=== PATIENT | male | born 1935 | race Native Hawaiian/Other Pacific Islander ===

== ENCOUNTER 2016-10-20 13:43 | Outpatient (CLI) | payer OTHER ==
[~2016-10-20 13:43] MED LIST: FOLI1TAB26 PO; LEVO0.1T6 PO; NEXIUM40 M1 PO
== END 2016-10-20 13:46 | disposition short-term general hospital (02) ==
LOC: AMB 13:43
DX: S00.81XA Abrasion of other part of head, initial encounter (principal); S80.211A Abrasion, right knee, initial encounter; S00.31XA Abrasion of nose, initial encounter; S60.511A Abrasion of right hand, initial encounter; S00.83XA Contusion of other part of head, initial encounter; W10.8XXA Fall (on) (from) other stairs and steps, initial encounter; Y92.240 Courthouse as the place of occurrence of the external cause
CPT/HCPCS: A0425; A0429

== ENCOUNTER 2016-10-20 13:47 | Emergency (ER) | payer OTHER ==
[~2016-10-20] VITALS: Ht 175.3 cm; Wt 93.9 kg
[2016-10-20 14:43] LABS: PLATELET COUNT 262 K/uL (142-355)
[2016-10-20 15:19] LABS: POTASSIUM 3.7 mmol/L (3.6-5.2); SODIUM 140 mmol/L (136-145)
[2016-10-20 17:00] VITALS: BP 151/92; TEMP 97.7
== END 2016-10-20 17:00 | disposition home or self-care (01) ==
LOC: ED 13:47
PROVIDERS: Specialist
DX: S00.81XA Abrasion of other part of head, initial encounter (principal); S80.01XA Contusion of right knee, initial encounter; W18.39XA Other fall on same level, initial encounter; Y92.89 Other specified places as the place of occurrence of the external cause
CPT/HCPCS: 36415; 80048; 82550; 82553; 84484; 85027; 90715; 93005; 99283

== ENCOUNTER 2017-08-23 04:17 | Outpatient (CLI) | payer OTHER | END 2017-08-23 05:01 | disposition short-term general hospital (02) | LOC: AMB 04:17 | DX: K92.0 Hematemesis (principal); R10.84 Generalized abdominal pain | CPT/HCPCS: A0425; A0427 ==

== ENCOUNTER 2017-09-16 15:39 | Emergency (ER) | payer OTHER ==
[~2017-09-16] VITALS: Ht 175.3 cm; Wt 85.3 kg
[2017-09-16 17:23] LABS: PLATELET COUNT 326 K/uL (142-355)
[2017-09-16 17:28] LABS: POTASSIUM 4.4 mmol/L (3.6-5.2); SODIUM 136 mmol/L (136-145)
[2017-09-16 21:49] LABS: PARTIAL THROMBOPLASTIN TIME 28.9 SECONDS (24.5-33.6)
[2017-09-17 00:18] VITALS: BP 109/73; TEMP 98.9
== END 2017-09-17 00:18 | disposition short-term general hospital (02) ==
LOC: ED 15:39
PROVIDERS: Emergency Medicine
DX: R07.89 Other chest pain (principal); K44.9 Diaphragmatic hernia without obstruction or gangrene; R06.02 Shortness of breath; R62.7 Adult failure to thrive; R53.1 Weakness
CPT/HCPCS: 36415; 80053; 81000; 82550; 82553; 84484; 85027; 85610; 85730; 93005; 96360; 96361; 96372; 99285; J1650; J2270; J2405

== ENCOUNTER 2017-10-13 01:45 | Outpatient (CLI) | payer OTHER ==
[2017-10-13] MEDS ORDERED: TAMS0.4C PO (02:20)
[2017-10-13] MEDS ORDERED: CLOPIDOGREL75 MG PO (02:20)
[2017-10-13] MEDS ORDERED: LIPITOR40 MG PO (02:20)
[2017-10-13] MEDS ORDERED: PRINIVIL5 MG PO (02:20)
== END 2017-10-13 01:57 | disposition short-term general hospital (02) ==
LOC: AMB 01:45
DX: R07.89 Other chest pain (principal); R06.02 Shortness of breath
CPT/HCPCS: A0425; A0427

== ENCOUNTER 2017-10-13 02:01 | Emergency (ER) | payer OTHER ==
[~2017-10-13] VITALS: Ht 175.3 cm; Wt 82.6 kg
[2017-10-13 02:17] LABS: PLATELET COUNT 353 K/uL (142-355)
[2017-10-13] MEDS ORDERED: CLOPIDOGREL75 MG PO (02:20)
[2017-10-13] MEDS ORDERED: LIPITOR40 MG PO (02:20)
[2017-10-13] MEDS ORDERED: TAMS0.4C PO (02:20)
[2017-10-13] MEDS ORDERED: PRINIVIL5 MG PO (02:20)
[2017-10-13 02:36] LABS: POTASSIUM 4.6 mmol/L (3.6-5.2); SODIUM 138 mmol/L (136-145)
[2017-10-13 03:22] VITALS: BP 116/67; TEMP 96.3
== END 2017-10-13 03:24 | disposition home or self-care (01) ==
LOC: ED 02:01
DX: K44.9 Diaphragmatic hernia without obstruction or gangrene (principal); K21.9 Gastro-esophageal reflux disease without esophagitis; I44.4 Left anterior fascicular block
CPT/HCPCS: 80053; 82550; 84484; 85027; 93005; 96374; 99284; J2270

== ENCOUNTER 2019-05-31 19:39 | Outpatient (CLI) | payer OTHER ==
[~2019-05-31 19:39] MED LIST changes: +CLOPIDOGREL75 MG PO; +LIPITOR40 MG PO; +PRINIVIL5 MG PO; +TAMS0.4C PO
== END 2019-05-31 19:52 | disposition short-term general hospital (02) ==
LOC: AMB 19:39
DX: S01.81XA Laceration without foreign body of other part of head, initial encounter (principal); W01.0XXA Fall on same level from slipping, tripping and stumbling without subsequent striking against object, initial encounter; Y93.89 Activity, other specified; Y92.010 Kitchen of single-family (private) house as the place of occurrence of the external cause
CPT/HCPCS: A0425; A0427

== ENCOUNTER 2019-05-31 20:00 | Emergency (ER) | payer OTHER ==
[~2019-05-31] VITALS: Ht 175.3 cm; Wt 73.9 kg
[2019-05-31 21:50] VITALS: BP 154/63; TEMP 97.7
== END 2019-05-31 21:50 | disposition home or self-care (01) ==
LOC: ED 20:00
PROC: 0HQ1XZZ Repair Face Skin, External Approach (ICD-10-PCS; principal; 2019-05-31)
DX: S01.81XA Laceration without foreign body of other part of head, initial encounter (principal); S09.8XXA Other specified injuries of head, initial encounter; W18.39XA Other fall on same level, initial encounter; Y92.098 Other place in other non-institutional residence as the place of occurrence of the external cause
CPT/HCPCS: 90471; 90715; 99283

== ENCOUNTER 2020-07-12 23:40 | Emergency (ER) | payer OTHER ==
[~2020-07-12] VITALS: Ht 175.3 cm; Wt 74.8 kg
[2020-07-13 02:12] VITALS: BP 159/62
== END 2020-07-13 02:13 | disposition home or self-care (01) ==
LOC: ED 23:40
PROC: 0HQEXZZ Repair Left Lower Arm Skin, External Approach (ICD-10-PCS; principal; 2020-07-12)
PROC: 0JDH3ZZ Extraction of Left Lower Arm Subcutaneous Tissue and Fascia, Percutaneous Approach (ICD-10-PCS; 2020-07-12)
DX: S51.812A Laceration without foreign body of left forearm, initial encounter (principal); S50.12XA Contusion of left forearm, initial encounter; W18.39XA Other fall on same level, initial encounter; Y92.89 Other specified places as the place of occurrence of the external cause
CPT/HCPCS: 90471; 90715; 99283

== ENCOUNTER 2020-07-22 15:53 | Emergency (ER) | payer OTHER ==
[~2020-07-22] VITALS: Ht 175.3 cm; Wt 74.8 kg
[2020-07-22 16:06] VITALS: BP 134/74; TEMP 98.9
== END 2020-07-22 16:57 | disposition home or self-care (01) ==
LOC: ED 15:53
DX: Z48.02 Encounter for removal of sutures (principal)

== ENCOUNTER 2020-10-10 09:28 | Outpatient (CLI) | payer OTHER | END 2020-10-10 21:18 | disposition home or self-care (01) | LOC: LAB 09:28 → EDBD 09:28 → LAB 21:18 | PROVIDERS: ATTEND Internal Medicine | DX: Z20.828 Contact with and (suspected) exposure to other viral communicable diseases (principal) | CPT/HCPCS: 87635; G2023; U0003 ==

== ENCOUNTER 2020-10-24 20:29 | Emergency (ER) | payer OTHER ==
[~2020-10-24] VITALS: Ht 175.3 cm; Wt 95.3 kg
[2020-10-24 22:06] LABS: PLATELET COUNT 124 K/uL (142-355)
[2020-10-24 22:15] LABS: POTASSIUM 4.3 mmol/L (3.6-5.2)
[2020-10-25 00:04] VITALS: BP 123/61; TEMP 99.4
== END 2020-10-25 00:04 | disposition home or self-care (01) ==
LOC: ED 20:29 → EDBD 20:29 → ED 10-25 00:04
PROVIDERS: Emergency Medicine Emergency Medical Services
DX: U07.1 COVID-19 (principal)
CPT/HCPCS: 36415; 80053; 83605; 85027; 87040; 87077; 87185; 87186; 87205; 87635; 96360; 96375; 99284; J1100; U0003

== ENCOUNTER 2020-10-26 10:58 | Emergency (ER) | payer OTHER ==
[~2020-10-26] VITALS: Ht 175.3 cm; Wt 95.3 kg
[2020-10-26 12:07] LABS: PLATELET COUNT 169 K/uL (142-355)
[2020-10-26 12:14] LABS: POTASSIUM 4.5 mmol/L (3.6-5.2)
[2020-10-26 12:55] VITALS: BP 120/77; TEMP 98.6
== END 2020-10-26 13:00 | disposition home or self-care (01) ==
LOC: ED 10:58 → EDBD 10:58 → ED 13:00
PROVIDERS: Family Medicine
DX: J44.1 Chronic obstructive pulmonary disease with (acute) exacerbation (principal); U07.1 COVID-19; Z79.2 Long term (current) use of antibiotics
CPT/HCPCS: 36415; 36600; 80053; 82805; 83605; 85027; 87040; 87077; 87185; 87186; 87205; 93005; 96374; 99284; J2930

== ENCOUNTER 2021-03-30 11:44 | Emergency (ER) | payer OTHER ==
[~2021-03-30] VITALS: Ht 175.3 cm; Wt 74.8 kg
[2021-03-30 11:50] VITALS: TEMP 97.4
[2021-03-30 12:20] LABS: PLATELET COUNT 195 K/uL (142-355)
[2021-03-30 15:57] VITALS: BP 133/61
== END 2021-03-30 16:05 | disposition home or self-care (01) ==
LOC: ED 11:44
PROVIDERS: Hospitalist
DX: K44.9 Diaphragmatic hernia without obstruction or gangrene (principal); N20.0 Calculus of kidney; N41.8 Other inflammatory diseases of prostate; Z20.822 Contact with and (suspected) exposure to COVID-19
CPT/HCPCS: 36415; 80053; 82150; 83690; 84484; 85027; 87635; 93005; 96360; 96365; 96375; 96376; 99284; J0696; J2405; Q9963; U0003

== ENCOUNTER 2021-04-03 01:18 | Inpatient (IN) | payer OTHER ==
[~2021-04-03] VITALS: Ht 175.3 cm; Wt 81.3 kg
[2021-04-03] VITALS (13 sets, daily range): BP systolic 86–126; BP diastolic 51–74; TEMP 97.6–98.3; Ht 175.3 cm; Wt 81.3 kg
[2021-04-03 01:37] LABS: PLATELET COUNT 200 K/uL (142-355)
[2021-04-03 01:47] LABS: POTASSIUM 4.6 mmol/L (3.6-5.2)
[2021-04-03 01:57] LABS: PARTIAL THROMBOPLASTIN TIME 20.7 SECONDS (24.5-33.6)
[2021-04-03] MEDS ORDERED: PANTOPRAZOLE 40MG TA PO (08:07)
[2021-04-03] MEDS ORDERED: MONTELUKAST SOD10 MG PO (08:07)
[2021-04-03] MEDS ORDERED: APIX1TAB PO (08:08)
[2021-04-03] MEDS ORDERED: FEXOFENADINE H180 MG PO (08:08)
[2021-04-03] MEDS ORDERED: HEMATINIC PL PO (08:10)
[2021-04-03] MEDS ORDERED: BRIMONIDINE0.2 % (08:11)
[2021-04-04] VITALS: BP 108/57; TEMP 97.8
[2021-04-04 04:00] VITALS: BP 113/52; TEMP 97.8
[2021-04-04 07:05] LABS: PLATELET COUNT 133 K/uL (142-355)
[2021-04-04 07:14] LABS: POTASSIUM 4.8 mmol/L (3.6-5.2)
[2021-04-04 12:00] VITALS: BP 105/44; TEMP 98.1
[2021-04-04 16:00] VITALS: BP 112/62; TEMP 98
[2021-04-04 20:13] VITALS: BP 111/60; TEMP 98.2
[2021-04-05] VITALS (14 sets, daily range): BP systolic 99–125; BP diastolic 37–65; TEMP 97.7–99.3
[2021-04-05 05:40] LABS: PLATELET COUNT 128 K/uL (142-355)
[2021-04-05 05:45] LABS: POTASSIUM 4.5 mmol/L (3.6-5.2)
[2021-04-06] VITALS (7 sets, daily range): BP systolic 97–125; BP diastolic 51–61; TEMP 97.8–98.4
[2021-04-06 05:12] LABS: PLATELET COUNT 110 K/uL (142-355)
[2021-04-06 05:26] LABS: POTASSIUM 4.2 mmol/L (3.6-5.2)
[2021-04-07] VITALS: BP 117/50; TEMP 97.9
[2021-04-07 04:00] VITALS: BP 129/71; TEMP 97.9
[2021-04-07 05:41] LABS: PLATELET COUNT 142 K/uL (142-355)
[2021-04-07 05:54] LABS: POTASSIUM 3.9 mmol/L (3.6-5.2)
[2021-04-07 08:00] VITALS: BP 134/71; TEMP 97.7
[2021-04-07 12:00] VITALS: BP 130/63; TEMP 98.3
[2021-04-07 16:00] VITALS: BP 131/59; TEMP 97.3
[2021-04-07 20:00] VITALS: BP 113/63; TEMP 98.5
[2021-04-08] VITALS: BP 134/66; TEMP 97.8
[2021-04-08 04:00] VITALS: BP 129/66; TEMP 97.9
[2021-04-08 08:00] VITALS: BP 130/66; TEMP 97.5
[2021-04-08 12:00] VITALS: BP 132/72; TEMP 98
[2021-04-08 16:00] VITALS: BP 111/54; TEMP 98.2
[2021-04-08 20:00] VITALS: BP 114/66; TEMP 98
[2021-04-09] VITALS: BP 113/58; TEMP 96.3
[2021-04-09 04:00] VITALS: BP 110/65; TEMP 97.2
[2021-04-09 08:00] VITALS: BP 108/62; TEMP 97.6
[2021-04-09 12:00] VITALS: BP 125/57; TEMP 98.1
[2021-04-09 16:00] VITALS: BP 107/62; TEMP 98.1
[2021-04-09 20:00] VITALS: BP 124/62; TEMP 98.7
[2021-04-10] VITALS: BP 103/50; TEMP 97.6
[2021-04-10 04:00] VITALS: BP 109/48; TEMP 97.6
[2021-04-10 07:39] LABS: PLATELET COUNT 248 K/uL (142-355)
[2021-04-10 08:00] VITALS: BP 116/67; TEMP 97.8
[2021-04-10 08:06] LABS: POTASSIUM 4.1 mmol/L (3.6-5.2)
== END 2021-04-10 11:12 | disposition swing bed (61) | DRG 872 ==
LOC: ED 01:18 → MED/SURG 04:30
PROVIDERS: Internal Medicine Endocrinology, Diabetes & Metabolism; ADMIT Hospitalist; ATTEND Internal Medicine
PROC: 30233N1 Transfusion of Nonautologous Red Blood Cells into Peripheral Vein, Percutaneous Approach (ICD-10-PCS; principal; 2021-04-06)
DX: R78.81 Bacteremia (principal); R65.10 Systemic inflammatory response syndrome (SIRS) of non-infectious origin without acute organ dysfunction; I95.89 Other hypotension; I25.10 Atherosclerotic heart disease of native coronary artery without angina pectoris; I73.89 Other specified peripheral vascular diseases; I25.2 Old myocardial infarction; Z95.1 Presence of aortocoronary bypass graft; E03.8 Other specified hypothyroidism; N40.0 Benign prostatic hyperplasia without lower urinary tract symptoms; D64.89 Other specified anemias; K21.9 Gastro-esophageal reflux disease without esophagitis; M62.81 Muscle weakness (generalized); R26.81 Unsteadiness on feet; B99.8 Other infectious disease; Z91.81 History of falling
CPT/HCPCS: 36415; 36416; 80048; 80053; 80202; 81000; 82607; 82728; 82746; 83540; 83605; 83690; 84484; 85014; 85018; 85027; 85610; 85730; 86850; 86900; 86901; 86922; 87040; 87077; 87185; 87186; 87205; 87635; 93005; 94760; 96360; 96361; 96365; 96366; 99284; J1956; J1650; J2270; J2405; J3370; J3490; P9016; U0003

== ENCOUNTER 2021-04-10 11:12 | Inpatient (IN) | payer OTHER ==
[~2021-04-10] VITALS: Ht 175.3 cm; Wt 79.8 kg
[~2021-04-10 11:12] MED LIST changes: +APIX1TAB PO; +BRIMONIDINE0.2 %; +FEXOFENADINE H180 MG PO; +HEMATINIC PL PO; +MONTELUKAST SOD10 MG PO; +PANTOPRAZOLE 40MG TA PO
[2021-04-10 14:34] VITALS: BP 116/67; TEMP 97.8; Ht 175.3 cm; Wt 79.8 kg
--- NOTE | 2021-04-10 14:57 | NUR ---
SWINGBED WEEKLY MEETING TOOK PLACE AT PTS BEDSIDE WITH DAUGHTER AT BEDSIDE. PT AWAKE AND ALERT AND GAVE VERBAL FEEDBACK. NO VOICED COMPLAINTS FROM PT OR DAUGHTER.
--- NOTE | 2021-04-10 17:18 | NUR ---
PT IN BED WITH EYES CLOSED. ASSIST PT TO VOID IN URINAL. OFFERED PT A SNACK, HE REQUESTED APPLE JUICE AND CASEY CRACKERS. PT ALERT AND ATTENATIVE DURING DAY, WATCHES TV. DENIES ANY PAIN/DISCOMFORT. NAD NOTED. PT HAS NOT HAD A BM TODAY.
--- NOTE | 2021-04-10 18:50 | NUR ---
PT WAS CLEANED/CHANGED AFTER HE HAD VOIDED IN DEPENDS DUE TO INCREASE IN PO FLUID INTAKE. PT C/O PAIN/DISCOMFORT IN POSTERIOR NECK R/T FALL HOME PRIOR TO ADMISSION. ADMINISTERED TYLENOL 650MG PO ORDERED. NAD NOTED. DAUGHTER AT BEDSIDE.
--- NOTE | 2021-04-10 18:58 | NUR ---
During interview, resident reported that he enjoys watching westerns on television, watching "[place]" and watching Dr. Jaya Johnson give a sermon. He also verbalized that he likes listening to [employer] music, reading the newspaper, talking on his cell phone to his lady friend and his nephew.
--- NOTE | 2021-04-10 19:06 | NUR ---
Resident's daughter Kandi Bazzi reported that resident will NOT eat chicken, macaroni and cheese, corn or Russian peas. Resident will eat sausage, bullard and BEEF hot dogs. Nursing reported that he enjoys drinking apple juice and cranberry juice.
--- NOTE | 2021-04-10 19:08 | NUR ---
Resident plans to return home to live with his daughter Kandi Bazzi and her . He has used [facility] in the past and desires to use their services again upon discharge from [facility].
[2021-04-10 20:10] VITALS: BP 111/51; TEMP 97.7
--- NOTE | 2021-04-10 23:14 | NUR ---
Pt resting in bed in high rayo's position alert watching tv. Denies c/o at this time. Apple juice given per request. Pt cont Levaquin 500mg po for UTI with no adverse reaction noted. Fluids offered and encouraged. Pt utilizes urinal and has occasional incontinent episodes. Pt given prn MOM for constipation due to last BM 04/04/21. Pt also given prn Ativan per request for "same med you gave me last night that helped me rest." No s/s of distress at this time. Call light in easy reach.
--- NOTE | 2021-04-11 03:11 | NUR ---
Pt alert at 0100 on phone talking to daughter confused to day/night hours. Sees clock on wall but confuses a.m. & p.m. hours. Pt asking about "procedure tomorrow." When questioned it was noted he was confused to the term of "swing bed". Educated pt on what swing bed meant and that it was not a procedure that would be performed on him other than daily activity therapy.
--- NOTE | 2021-04-11 06:04 | NUR ---
Pt has received scheduled dose of Colace 200mg along prn MOM 30ml and has still not had a BM. Fluids encouraged. Water and apple juice at bedside.
[2021-04-11 08:00] VITALS: BP 137/51; TEMP 97.4
--- NOTE | 2021-04-11 08:00 | NUR ---
PT CALLED FOR ASSISTANCE FOR HELP WITH URINAL. UPON ENTERING ROOM PT STATES THAT HE NEEDS TO USE THE JUG. PT ASSITED WITH URINAL. PTS LINEN CHANGED, SMALL AMT OF URINE NOTED TO LINEN. PT ABLE TO REACH FOR SIDERAILS WHEN TURNING TO BE CHANGED. PT REMOVED DENTURES, DENTURES CLEANED BY NURSE, PT ABLE TO BRUSH GUMS, DENTURES GIVEN BACK TO PT TO REINSERT. PT STATES THAT HE NEEDS NEW DENTURES.
--- NOTE | 2021-04-11 09:15 | NUR ---
PROVIDED PATIENT WITH AM MEDICATIONS. PT TOOK ALL MEDICATIONS WHOLE WITHOUT DIFFICULTY. PATIENT SITTING UP IN [place] CHAIR, LINENS CHANGED BY SALES ASSISTANT ENTERTAINMENT AND MEDIA. PATIENT DENIES ANY PAIN, NEEDS OR C/O AT THIS TIME. PATIENT INSTRUCTED TO CALL FOR ANY ASSISTANCE OR NEEDS AND PT EDUCATED ON USE OF CALL LIGHT. PATIENT V/O UNDERSTANDING. NAD NOTED WITH PATIENT AT THIS TIME. AM ASSESSMENT COMPLETED.
--- NOTE | 2021-04-11 10:05 | NUR ---
PATIENT TRANSFERRED TO [facility] [place]ER AND STAFF AT SIDE CUING AND OFFERING SUPPORT TO PATIENT. STAFF PROVIDED NO WEIGHT BEARING SUPPORT TO PATIENT. PATIENT TOLERATED WELL.
--- NOTE | 2021-04-11 10:30 | NUR ---
PATIENT UNABLE TO HAVE A BOWEL MOVEMENT AT THIS TIME. SUPERVISED PATIENT WHILE TRANSFERRING TO BED, NO WEIGHT BEARING SUPPORT PROVIDED TO PATIENT ONLY SUPERVISION AND CUING. PATIENT'S SON AT BEDSIDE.
--- NOTE | 2021-04-11 11:40 | NUR ---
PATIENT'S SON REMAINS AT BEDSIDE VISITING WITH PATIENT. PATIENT DENIES ABILITY TO HAVE BOWEL MOVEMENT AT THIS TIME. PATIENT C/O OF PAIN TO NECK. DARLENE, PT, ADVISED THEY TOSSED THE BALL FOR APPROXIMATELY 15 MINUTES PROVIDING ADDITIONAL EXERCISE FOR THE NECK MUSCLES. INFORMED THE PATIENT AND PATIENT'S SON I WOULD CONSULT WITH THE PHYSICIAN ABOUT PATIENT'S PAIN AND ADDITIONAL MEDICATION TO MOVE PATIENT'S BOWELS, BOTH V/O UNDERSTANDING. CALL LIGHT WITHIN REACH, PT AND SON ENCOURAGED TO CALL FOR ANY ASSISTANCE OR NEEDS, BOTH V/O UNDERSTANDING.
--- NOTE | 2021-04-11 13:20 | NUR ---
RECEIVED NEW ORDERS FOR ENEMA X1 NOW AND VOLTAREN GEL TO BE APPLIED TO NECK NOTED AND CARRIED OUT. ADMINISTERED ENEMA WITH MODERATE AMOUNT OF HARDENED FECES REMOVED, PT V/O HIS "STOMACH ALREADY FEELS BETTER". ADMINISTERED MILK OF MAG AND VOLTAREN GEL APPLIED TO NECK BY HAT BAND ATTACHER. PATIENT V/O HIS APPRECIATION FOR SAME.
--- NOTE | 2021-04-11 14:54 | NUR ---
04/10/21-PRACTICAL MATTER STATEMENT MR WILLSON IS A 85 YR OLD MALE THAT WAS ADMITTED FROM ACUTE CARE TO OUR SWING BED GROUP HOME PROGRAM FOR THERAPY. PT HAD AN INPT STAY FROM 04/03/21-04/10/21 FOR SEPSIS/SIRS. MR WILLSON LIVES WITH HIS DAUGHTER & SON IN LAW WHO BOTH WORKS VICE PRESIDENT & GENERAL MANAGER [employer] [place] [employer]. MR WILLSON NO REQUIRES 24 HR GROUP HOME CAR ON AN INPT BASIS ALONG [facility] INPT PT, OT, 5 DAYS A WEEK WHICH IS A PRACTICAL MATTER. HE CONTINUES TO STRUGGLE WITH SEVERE WEAKNESS, REQUIRING 2 PERSON ASSIST TO HELP WITH TRANSFERS, TOILETING, WALKING, BED MOBILITY & OTHER ADLS, THEREFORE NO LONGER ABLE TO CARE FOR HIMSELF, & MEET HIS DAILY NEEDS. HE WILL NEED ASSISTANCE WITH ALL ADL'S. HIS FAMILY IS UNABLE TO PROVIDE THIS CARE AT THIS TIME BECAUSE OF THEIR JOBS. [facility] STAFF WITH CONTINUE TO OBSERVE AND ASSIST MR WILLSON WITH ANY MEDICALLY RELATED NEEDS AND DISCHARGE PLANNING NEEDS THANH ESPINOSA CM 04/11/2021
--- NOTE | 2021-04-11 15:25 | NUR ---
PATIENT VISITING WITH FAMILY MEMBERS AT BEDSIDE. PATIENT DENIES ANY PAIN, NEEDS OR C/O AT THIS TIME. PATIENT ENCOURAGED TO CALL FOR ANY ASSISTANCE OR NEEDS, CALL LIGHT WITHIN REACH.
--- NOTE | 2021-04-11 16:35 | NUR ---
PATIENT'S DAUGHTER AT BEDSIDE. PATIENT DENIES ANY PAIN, NEEDS OR C/O AT THIS TIME. PATIENT V/O HIS NECK PAIN IS 2/10 NUMERIC PAIN SCALE AT THIS TIME. PATIENT DENIES BOWEL MOVEMENT AT THIS TIME. NAD NOTED WITH PATIENT AT THIS TIME.
[2021-04-11 20:00] VITALS: BP 117/69; TEMP 97.9
--- NOTE | 2021-04-11 21:00 | NUR ---
VOLTAREN GEL AND NORCO 5/325 MG GIVEN AT THIS TIME FOR NECK PAIN OF 8/10 VOICED BY PT. PT SITTING UP IN BED WATCHING TV IN A HIGH-FOWLERS POSITION WITH BED IN LOWEST POSITION WITH CALL LIGHT WITHIN REACH. PM MEDS GIVEN AT THIS TIME. PT. TOLERATED WELL. WILL CONTINUE TO MONITOR PT FOR MEDICATION EFFECTIVENESS.
[2021-04-12 08:00] VITALS: BP 129/64; TEMP 97.4
--- NOTE | 2021-04-12 09:28 | NUR ---
PER PHYSICAL THERAPY, THEY LEFT PATIENT UP IN RECLINER. HARP ACTION ASSEMBLER TO ROOM TO ASSESS PT.
--- NOTE | 2021-04-12 14:48 | NUR ---
ASSISTED PT ONTO BSC FOR BM USING WALKER AND MIN ASSIST. PT GIVEN CALL LIGHT AND INSTRUCTIONS TO CALL FOR ASSIST BACK TO BED.
--- NOTE | 2021-04-12 15:00 | NUR ---
Sridhar YE RNCN IN TO ASSIST PT BACK TO BED FROM BSC. HEMOCCULT STOOL COLLECTED AND TAKEN TO LAB. PT NOTED TO HAVE EVACUATED A LARGE AMOUNT OF FORMED STOOL.
--- NOTE | 2021-04-12 16:27 | NUR ---
DR. WADSWORTH NOTIFIED THAT SMALL AMT BLOOD WAS SEEN IN STOOL AND THAT PATIENT STILL TAKING ELIQUIS. TORBV FOR CBC NOW.
--- NOTE | 2021-04-12 18:30 | NUR ---
SANDOR Oviedo IN THE LAB, PT HAS TO BE RESTUCK FOR CBC.
--- NOTE | 2021-04-12 18:32 | NUR ---
DR. WADSWORTH NOTIFIED OF + HEMOCCULT RESULTS AND THAT CBC HAS TO BE REDRAWN. NO NEW ORDERS AT THIS TIME.
--- NOTE | 2021-04-12 18:33 | NUR ---
ASSISTED PT WITH URINAL, 100CC YELLOW URINE EMPTIED FROM URINAL. DAUGHTER AT BEDSIDE. NAD NOTED AT THIS TIME.
[2021-04-12 19:01] LABS: PLATELET COUNT 308 K/uL (142-355)
--- NOTE | 2021-04-12 19:07 | NUR ---
DR. WADSWORTH AWARE OF HGB 10.9- NO NEW ORDERS AT THIS TIME.
[2021-04-12 20:00] VITALS: BP 98/45; TEMP 98
--- NOTE | 2021-04-12 22:45 | NUR ---
PT. ASSISTED UP THE BEDSIDE COMMODE AT THIS TIME. PT HAS A LARGE BLACK FORMED BOWEL MOVEMENT AT THIS TIME.
--- NOTE | 2021-04-13 07:40 | NUR ---
PATIENT IN HIGH FOWLERS POSITION WATCHING TV. PATIENT ADVISED HE SLEPT WELL LAST NIGHT AND DENIES ANY PAIN, NEEDS OR C/O AT THIS TIME. NAD NOTED WITH PATIENT AT THIS TIME. CALL LIGHT WITHIN REACH AND BEDSIDE TABLE WITH PERSONAL BELONGINGS WITHIN PATIENT'S REACH. PROVIDED FRESH WATER AND ICE IN PATIENT'S WATER MUG
[2021-04-13 08:00] VITALS: BP 122/58; TEMP 97.4
--- NOTE | 2021-04-13 08:05 | NUR ---
PATIENT CALLED STAFF TO BEDSIDE TO PLACE BLANKET OVER HIS FEET.
--- NOTE | 2021-04-13 10:35 | NUR ---
SUPERVISED AND CUED PATIENT WITH TRANSFERRING FROM BED TO [place] CHAIR WITH USE OF WALKER. GAIT IS STEADY AND PCT JESSICA INSTRUCTED PATIENT TO "SLOW DOWN". NAD NOTED WITH PATIENT AT THIS TIME. CALL LIGHT PLACED IN CHAIR WITH PATIENT AND BEDSIDE TABLE WITH PERSONAL BELONGINGS PLACED WITHIN REACH. PATIENT INSTRUCTED TO CALL FOR ANY ASSISTANCE OR NEEDS, PT V/O UNDERSTANDING.
--- NOTE | 2021-04-13 14:30 | NUR ---
PATIENT'S DAUGHTER AT BEDSIDE. PATIENT REQUEST STAFF TO ASSIST HIM TO BSC. PATIENT HAD A LARGE BOWEL MOVEMENT. STAFF PROVIDED MINIMAL ASSIST WITH ONLY SUPERVISION AND CUING. PATIENT'S DAUGHTER REPEATEDLY V/O HER APPRECIATION FOR THE CARE STAFF HAS PROVIDED TO HER FATHER AND STATED "HE LOOKS SO MUCH BETTER". STAFF SUPERVISED AND CUED PATIENT IN THE TRANSFER FROM BSC TO BED. PATIENT TOLERATED WELL. CALL LIGHT WITHIN REACH AND BEDSIDE TABLE PLACED NEXT TO PATIENT AND PERSONAL ITEMS ALL WITHIN REACH. NO S/SX OF DISTRESS NOTED WITH PATIENT.
--- NOTE | 2021-04-13 18:31 | NUR ---
PATIENT'S BRIEF AND CHUX CHANGED BY NURSE.
[2021-04-13 20:00] VITALS: BP 156/46; TEMP 97.47
--- NOTE | 2021-04-13 22:36 | NUR ---
Pt resting in bed in low rayo's position with eye's closed. PRN pain med given earlier with no further c/o at this time. No s/s of distress noted. Call light in easy reach.
--- NOTE | 2021-04-14 02:16 | NUR ---
Pt resting in bed on left side with eyes closed. No c/o voiced. No s/s of distress. Call light in easy reach..
--- NOTE | 2021-04-14 04:07 | NUR ---
Pt resting in bed. Pt has called x2 in the past three hours for assistance with urinal. Also turned and repositioned x2 person assist. Denies c/o pain at this time. No s/s of distress.
--- NOTE | 2021-04-14 05:38 | NUR ---
Assisted pt with urinal and appeared to have blood in urine. Urine light red in color. Pt denies pain at this time. Requesting apple juice. Same given.
--- NOTE | 2021-04-14 07:49 | NUR ---
PT IN BED IN LOW FOWLERS POSITION. ASSISTED PT TO VOID IN URINAL. PT ALERT AND AWAKE. DENIES ANY PAIN OR DISCOMFORT. NAD NOTED. PT STATED "I SLEPT WELL LAST NIGHT BUT I HAD TO KEEP USING THE URINAL" NO HEMATURIA NOTED TO URINE,URINE CLEAR AND STRAW YELLOW.
[2021-04-14 08:00] VITALS: BP 99/56; TEMP 97.9
--- NOTE | 2021-04-14 14:27 | NUR ---
PT UP IN CHAIR THIS MORNING WITH ASSISTANCE FROM PT. ASSISTED PT BACK IN BED USING WALKER. PT COMPLIANT WITH THERAPY. PT ONLY ONE PERSON ASSIST GOING TO BEDSIDE COMMODE AND TO CHAIR. DENIES ANY PAIN OR DISCOMFORT. NAD NOTED.
[2021-04-14 19:53] VITALS: BP 105/53; TEMP 97.6
--- NOTE | 2021-04-14 20:05 | NUR ---
PM MEDS GIVEN AT THIS TIME. PT. TOLERATED WELL. NO S/S OF ACUTE DISTRESS NOTED AT THIS TIME. PT DID NOT COMPLAIN OF PAIN IN NECK REGION AT THIS TIME. PT EXPRESSED PT NEEDED TO URINATE. SUBSTANCE ABUSE SPECIALIST GAVE PT. URINAL AND PT SELF-ASSISTED HIMSELF. PT. PUT OUT 100 ML OF TEA COLORED URINE. PT SITTING UP IN A HIGH-FOWLERS POSITION WITH SIDE RAILS UP TIMES TWO WITH BED IN LOWEST POSITION WITH CALL LIGHT WITHIN REACH. WILL CONTINUE TO MONITOR FOR ANY ACUTE CHANGES.
--- NOTE | 2021-04-15 03:29 | NUR ---
BLOW MOLDING MACHINE TENDER IN PT'S ROOM TO PULL PT UP IN THE BED. BLOW MOLDING MACHINE TENDER WITNESSED PT. PULL HIMSELF UP IN THE BED AFTER BLOW MOLDING MACHINE TENDER ADJUSTED THE BED TO ACCOMODATE PT SO PT COULD TRY TO DO IT HIMSELF. PT. READJUSTED TO A LOW-FOWLERS POSITION. PT. IS USING URINAL INDEPENDENTLY AND JUST PUT OUT 275 ML. NO S/S OF ACUTE DISTRESS NOTED OR EXPRESSED BY PT.
[2021-04-15 08:00] VITALS: BP 128/70; TEMP 97.6
--- NOTE | 2021-04-15 08:31 | NUR ---
PT UP IN HF POSITION WITH BREAKFAST TRAY IN FRONT OF HIM. MORNING MEDS GIVEN AT THIS TIME. NAD NOTED. PT HAS NO COMPLAINTS OR REQUESTS AT THIS TIME. BED LOW AND LOCKED. SIDE RAILS UP X2. CALL LIGHT WITHIN REACH.
--- NOTE | 2021-04-15 10:30 | NUR ---
PT C/O RIGHT SIDED NECK PAIN. RATES PAIN A 5 ON 0-10 PAIN SCALE. PRN PAIN MEDS GIVEN, SEE MAR.
--- NOTE | 2021-04-15 10:46 | NUR ---
PT AMBULATING IN HALLWAY WITH ASSISTANCE OF PHYSICAL THERAPY
--- NOTE | 2021-04-15 17:15 | NUR ---
PT C/O NECK PAIN 6 ON 0-10 PAIN SCALE. PRN PAIN MEDS GIVEN, SEE MAR. PT TOLERATED WELL. NAD NOTED. BED LOW AND LOCKED. SIDE RAILS UP X2. CALL LIGHT WITHIN REACH.
--- NOTE | 2021-04-15 19:34 | NUR ---
Pt alert sitting in high fowlers position in bed watching tv with no c/o at this time. States "I'm good right now." Fluids at bedside. Received bath earlier today per tech. No s/s of distress at this time. Call light in easy reach.
[2021-04-15 20:01] VITALS: BP 115/56; TEMP 98
--- NOTE | 2021-04-16 05:45 | NUR ---
Pt resting in bed with eyes closed. Easily aroused. Denies c/o pain or discomfort. Apple juice given per request. HOB elevated. No s/s of distress. Call light in easy reach.
[2021-04-16 07:56] VITALS: BP 104/44; TEMP 98.2
--- NOTE | 2021-04-16 09:00 | NUR ---
PATIENT RESTING IN BED. NAD NOTED. CALL LIGHT WITHIN REACH. MORNING MEDS GIVEN. PATIENT TOOK WITHOUT DIFFICULTY. BREAKFAST TRAY GIVEN TO PATIENT.
--- NOTE | 2021-04-16 11:00 | NUR ---
PATIENT CALLED FOR URINAL. URINAL PROVIDED TO PATIENT. 200ML OF YELLOW URINE VOIDED.
--- NOTE | 2021-04-16 13:36 | NUR ---
DAUGHTER AT BEDSIDE.
[2021-04-16 20:00] VITALS: BP 110/45; TEMP 97.6
[2021-04-17 08:00] VITALS: BP 114/50; TEMP 97.6
[2021-04-17 20:00] VITALS: BP 123/65; TEMP 97.7
--- NOTE | 2021-04-17 21:15 | NUR ---
PM MEDS GIVEN AT THIS TIME. PT. TOLERATED WELL. NO S/S OF ACUTE DISTRESS NOTED. PT. USED URINAL WHILE PRODUCTION ARTIST IN ROOM. CALL LIGHT WITHIN REACH.
--- NOTE | 2021-04-18 05:14 | NUR ---
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, slow bleed, S/P Sepsis, kidney stone, CABG x 1, Hypotension, partial SBO, Ballard's esophagus with Dyspegia, BPH, Diverticulitis, Adult FTT, abrasion to the face, CP and R/O [place], GERD, smoked for 40 years, CAD/[place], Hyperlipidemia, PUD, skin cancer, Anemia and RD reviewed whole chart and labs reveal RBC, Hgb and Hct depressed and RDW elevated, 63" or 5'3" and IBW = 124 +/-10% (112 to 136 lbs.) and kcal needs x 25 = 1400, x 30 = 1700, x 35 = 2000, x 40 = 2300 kcal/day, protein needs x .8 to 1.5 = 45 to 85 grams per day and fluids for IBW x 25 to 40 = 1400 to 2300 ml/cc per day and BMI is 31 and is Class I Obesity and weight is at 175.3 lbs. and is 141% of IBW. RD availale as needed. RD Recommendaitons: 1-PT to work with patient 2-OT to work with patinet 3-ST to work with patient 4-Monitor Labs 5-Add MVI if eating <75% of meals 6-Add appetite stimulant if eating <75% of meals 7-Add Vitamin C 500 mg BID 8-Add a supplement if eating <75% of meals 9-Increase foods high in Fe 10-[place] all food preferences and if any food allergens and offer substitutes with all meals 11-May want to change to a Cardiac High Fiber diet if will follow d/t diagnosis 12-Add ZNSO4 x 14 days- 220 mg or Zinc 50 mg a day
[2021-04-18 08:00] VITALS: BP 124/58; TEMP 98.3
--- NOTE | 2021-04-18 08:25 | NUR ---
PT AWAKE AND ALERT.PT ASKED WHAT TODAY WAS. NAD NOTED. ADMINISTERED AM MEDS ORDERED AND PT TOLERATED WITH NO DIFFICULTY. DENIES ANY PAIN OR DISCOMFORT AT PRESENT TIME.
--- NOTE | 2021-04-18 11:33 | NUR ---
PT COMPLIANT WITH PHYSICAL THERAPY. SWING BED MEETING HELD THIS MORNING AT PTS BEDSIDE TO DISCUSS DISCHARGE PLANNING. HOME EVALUATION SCHEDULED FOR SUNDAY, APRIL 22. PT PROGRESS HAS IMPROVED. PT ABLE TO GET UP WITH LIMITED ASSISTANCE TO USE WALKER TO TRANSFER FROM BED TO CHAIR. PT ALERT AND ORIENTED. PT CONTINUES TO VOID IN URINAL AND WITH MINIMAL ASSISTANCE WILL USE BEDSIDE COMMODE. NAD NOTED.
--- NOTE | 2021-04-18 14:21 | NUR ---
PT HAS VISITOR, FEMALE FRIEND, AT BEDSIDE. PT RECOGNIZED VISITOR AND CALLED HER BY NAME. PT SMILED WHEN VISITOR ARRIVED AND STARTED COMMUNICATING WITH HER. PT DENIES ANY PAIN OR DISCOMFORT. BED LINEN CHANGED AND PT HAD A BATH TODAY. PT ELATED ABOUT GOING HOME NEXT WEEK. NAD NOTED.
--- NOTE | 2021-04-18 18:14 | NUR ---
PT SITTING UP IN BED TALKING ON CELL PHONE. NO C/O PAIN OR DISCOMFORT VOICED THIS SHIFT. PT COMPLIANT WITH PT & OT TODAY. FEMALE COAL PASSER VISITED WITH PT FOR A FEW HOURS AND THEN LEFT. PT STATED "I WAS GLAD TO SEE HER" PTS GAIT MORE STEADY AND CAN USE WALKER WITH LITTLE ASSISTANCE FROM STAFF. CONTINUES TO REQUEST URINAL TO VOID. NAD NOTED.
[2021-04-18 20:00] VITALS: BP 114/59; TEMP 98
--- NOTE | 2021-04-18 21:25 | NUR ---
ROJELIO PORTILLO AND Elier ASSISTED PATIENT TO BATHROOM, PATIENT AMBULATED WITH WALKER WELL. PATIENT HAD A MODERATE SIZE BOWEL MOVEMENT AND ASSISTED BACK TO BED. PATIENT ALSO ABLE TO PULL HIMSELF UP IN THE BED USING BED RAILS, WHICH IS QUITE AN IMPROVEMENT SINCE HIS ADMISSION DATE. PATIENT DENIES ANY COMPLAINTS AND NO DISTRESS NOTED AT THIS TIME. CALL LIGHT WITHIN REACH. WILL CONTINUE TO MONITOR.
--- NOTE | 2021-04-18 23:54 | NUR ---
Pt resting in bed with eyes closed in low rayo's position. PRN ativan given earlier per request for something to "help me rest." Apple juice given with hs meds. Denies c/o pain/discomfort. Assisted to bathroom x2 person assist and noted to have a large BM. No s/s of distress at this time.
--- NOTE | 2021-04-19 03:43 | NUR ---
Pt resting on right side with eyes closed. No c/o voiced. No s/s of distress. Call light in easy reach.
--- NOTE | 2021-04-19 05:45 | NUR ---
Pt resting in bed with eyes closed on right side in low rayo's position. No s/s of distress. Fluids at bedside. No C/o voice. Call light in easy reach.
--- NOTE | 2021-04-19 07:35 | NUR ---
PT IN BED IN LOW FOWLERS POSITION. AWAKE AND ALERT. PT ASKED "WHAT DAY IS THIS?" NAD NOTED. REQUESTED URINAL TO VOID. URINE CLEAR YELLOWISH. DENIES ANY PAIN OR DISCOMFORT. NO VOICED COMPLAINTS. LUNG SOUNDS CLEAR. NO EDEMA NOTED TO UPPER OR LOWER EXTREMITIES.
[2021-04-19 08:00] VITALS: BP 111/60; TEMP 97.7
--- NOTE | 2021-04-19 12:20 | NUR ---
PT LAYING IN BED IN LOW FOWLERS POSITION WITH EYES CLOSED. SON VISITED EARLIER IN THE AM AND DID NOT WANT TO AWAKE PT. NAD NOTED. PT COMPLIANT WITH OT TODAY. PT GAIT STEADY WITH THE USE OF WALKER. MINIMUM ASSISTANCE NEEDED WHEN ABULATING WITH WALKER.
--- NOTE | 2021-04-19 12:45 | NUR ---
DR GAINES HERE AT THIS TIME. DIETARY RECCOMENDATIONS GIVEN TO HER AT THIS TIME. NEW ORDERS REC'D TO START ZINC 240MG TAKE ONE TAB DAILY.
--- NOTE | 2021-04-19 13:41 | NUR ---
PT WALKING DOWN THE ALVES USING WALKER WITH PHYSICAL THERAPY AFTER LUNCH. STEADY GAIT WHILE USING WALKER. DENIES ANY PAIN OR DISCOMFORT. NAD NOTED. ALERT AND ORIENTED. CLEAR AND LOGICAL SPEECH. NO VOICED COMPLAINTS.
--- NOTE | 2021-04-19 14:58 | NUR ---
PT IN BED WITH EYES CLOSED. PT HAS BEEN SLEEPING MORE TODAY. PT REPLIED, "I HAVEN'T SLEPT MUCH THE LAST COUPLE OF DAYS, JUST TRYING TO CATCH UP ON MY SLEEP." ENCOURAGED PT TO REST. PT DENIES ANY PAIN OR DISCOMFORT. NAD NOTED.
--- NOTE | 2021-04-19 16:50 | NUR ---
PT REQUESTED ASSISTANCE TO VOID IN URINAL. URINE CLEAR AND YELLOWISH. NO ODOR OBSERVED. PT HAS DEPENDS ON. PT [id number] HIMSELF IN BED BY HOLDING ON TO SIDERAILS AND PULLING HIMSELF UP IN BED. DENIES ANY PAIN/DISCOMFORT. NAD NOTED. NO VOICED COMPLAINTS. BED RAILS UP X2, BED IN LOW POSITIONED AND LOCKED.
[2021-04-19 19:55] VITALS: BP 110/55; TEMP 97.4
--- NOTE | 2021-04-19 20:11 | NUR ---
Pt resting in bed alert in high rayo's position watching tv with no c/o at this time. Requested assistance with use of urinal. No s/s of distress. Call light in easy reach.
--- NOTE | 2021-04-19 23:52 | NUR ---
PT RESTING IN BED WITH EYES CLOSED AT THIS TIME. PRN NORCO AND ATIVAN GIVEN AT 2200 PER REQUEST WITH NO FURTHER C/O. ASSISTED PT TO BSC EARLIER AND NOTED PT TO HAVE HAD LARGE BM BUT PT ALSO HAD INCONTINENT EPISODE OF BM PRIOR TO USE OF BSC. PERICARE PROVIDED. NO S/S OF DISTRESS. CALL LIGHT IN EASY REACH.
[2021-04-20 08:00] VITALS: BP 112/51; TEMP 97.6
--- NOTE | 2021-04-20 08:30 | NUR ---
PT LYING IN HF, NAD NOTED, PT TOOK AM MEDICATIONS WITHOUT DIFFICULTY, PT STATES HE HAS NO PAIN AT THIS TIME, LUNGS CTA, PT AX0 X 4, PT HAS NO NEEDS AT THIS TIME, CALL LIGHT WITHIN REACH
--- NOTE | 2021-04-20 11:31 | NUR ---
PT RESTING IN BED WITH EYES CLOSED, NAD NOTED, NONLABORED BREATHING, NO NEEDS AT THIS TIME, CALL LIGHT WITHIN REACH WILL CONTINUE TO MONITOR
--- NOTE | 2021-04-20 13:45 | NUR ---
Swing Bed patient and had the IDT team meeting on Wednesday and no complaints in any areas, pleased with all meals, services as PT, OT,ST, Pharmacy, and nursing. Continue to follow as needed. Will visit with patient again next week.
--- NOTE | 2021-04-20 16:10 | NUR ---
PATIENT AMBULATING IN HALLWAY WITH PT USING WALKER AND NO ASSISTANCE JUST CONTACT GUARD, NAD NOTE, NONLABORED BREATHING, PATIENT AMBULATED TO OUTSIDE AND BACK TO RM WITHOUT ASSISTANCE
--- NOTE | 2021-04-20 16:50 | NUR ---
DAUGHTER IN RM WITH PT AT THIS TIME, PT MOVED HIMSELF UP IN THE BED WITHOUT ASSISTANCE, PT LYING IN HF, NAD NOTED, PT VOICES NO NEEDS AT THIS TIME, CALL LIGHT WITHIN REACH, WILL CONTINUE TO MONITOR
[2021-04-20 20:00] VITALS: BP 114/56; TEMP 97.3
--- NOTE | 2021-04-20 20:16 | NUR ---
Pt alert resting in bed in high rayo's position watching tv. No s/s of distress. No c/o at this time. Call light in reach.
[2021-04-21 08:00] VITALS: BP 112/50; TEMP 97.3
[2021-04-21 20:00] VITALS: BP 125/59; TEMP 97.5
--- NOTE | 2021-04-22 01:45 | NUR ---
LATE ENTRY 189904/21/21: PATIENT DENIED ANY PAIN. PATIENT WAS PULLED UP IN THE BED AND REPOSITONED. PATIENT WAS ALSO ASSISTED WITH THE URINAL. 2199: PATIENT REPORTED BACK PAIN. PRN PAIN MEDICATION WAS GIVEN AND PATIENT READJUSTED
--- NOTE | 2021-04-22 04:51 | NUR ---
PATIENT IS RESTING QUIETLY, EYES CLOSED. BREATHING IS REGULAR NON LABORED
[2021-04-22 08:00] VITALS: BP 109/58; TEMP 97.7
[2021-04-22 20:22] VITALS: BP 129/68; TEMP 97.7
--- NOTE | 2021-04-23 04:49 | NUR ---
LATE ENTRY: 04/22/212129 PATIENT REPORTS BACK PAIN. PRN PAIN MEDICATION GIVEN. 2199: PATIENT REPORTS BACK PAIN RELIEF. PATIENT GIVEN A FULL BED BATH. RIGHT FOOT DRESSING APPLIED PER MD ORDERS. 0000: PATIENT RESTING QUIETLY. RESPIRATIONS NON LABORED
--- NOTE | 2021-04-23 04:52 | NUR ---
PATIENT WAS AWAKENED FOR VITALS. STRIKE ON MACHINE OPERATOR REPORTED PATIENT WAS CONFUSED. HE "THOUGHT HE WAS IN THE KITCHEN." PATIENT WAS REORIENTED BY STRIKE ON MACHINE OPERATOR. WASTE TRANSPORTATION TECHNICIAN WENT TO THE ROOM AND PATIENT IS NOW REORIENTED. PATIENT REPORTED, "I WAS IN A DEEP SLEEP. I THOUGHT I WAS IN MY KITCHEN." PATIENT THEN WAS PUT ON THE BEDPAN. PATIENT PASSEDD GAS. PATIENT IS NOW REORENTED
--- NOTE | 2021-04-23 04:57 | NUR ---
PATIENT WAS HELPED WITH THE URINAL. PATIENT REPORTED, "i had a good nap"
[2021-04-23 08:00] VITALS: BP 111/50; TEMP 98.5
--- NOTE | 2021-04-23 09:52 | NUR ---
PT SEMI-FOWLERS IN BED. ALERT AND OREIENTED. DENIES ANY PAIN OR DISCOMFORT. NAD NOTED. AM MED ADMINISTERED AND PT TOLERATED WITH NO DIFFICULTY. CONTINUE TO MONITOR.
[2021-04-23 20:00] VITALS: BP 119/62; TEMP 97.4
--- NOTE | 2021-04-24 01:50 | NUR ---
Pt resting in bed in high rayo's position requesting assist with urinal. Denies c/o pain/discomfort. Fluids at bedside. No s/s of distress. Call light in easy reach.
[2021-04-24 04:00] VITALS: BP 134/68; TEMP 97.5
--- NOTE | 2021-04-24 05:46 | NUR ---
Pt resting quietly in bed with eyes closed. No c/o voiced. No s/s of distress. Call light in easy reach.
--- NOTE | 2021-04-24 08:42 | NUR ---
PT UP IN CHAIR IN ROOM EATING BREAKFAST. PT GIVEN A BATH AND CHANGED INTO THE CLOTHES THAT WAS BROUGHT BY FAMILY. AM MEDS ADMINISTERED ORDERED WITH NO DIFFICULTY. PT ALERT AND ORIENTED. DENIES ANY PAIN/DISCOMFORT. NAD NOTED. PT ASSISTED WITH ADLS AND BATH. PT LEARNING TO USE URINAL WITHOUT ASSISTANCE FROM STAFF. PT HAS HOME EVAL TODAY. FAMILY WILL PICK HIM UP AT 1000.
--- NOTE | 2021-04-24 10:34 | NUR ---
PT TRANSPORTED OUT OF FACILITY VIA WHEELCHAIR TO GO HOME FOR HOME EVAL AT 1030 AM.L PTS SON-IN-LAW ARRIVED TO PICK PT UP. PT ALERT AND ANXIOUS ABOUT GOING HOME FOR VISIT AND GOING HOME IN AM. NO S/S OF PAIN/DISCOMFORT OR DISTRESS OBSERVED PRIOR TO PT LEAVING.
--- NOTE | 2021-04-24 10:49 | NUR ---
Wet to visit patient and nurse stated he went home for a visit to evaluate. IDT meeting tomorrow. Remains on a Low Sodium DIet Plan. RD Available as needed.
--- NOTE | 2021-04-24 18:18 | NUR ---
PT R/T FROM HOME EVALUATION AT 1700. SON-IN-LAW BROUGHT PT BACK TO FACILITY. PT HAS CLOTHES TO GO HOME IN AM. DAUGHTER WILL CALL TO NOTIFY WHAT TIME SHE WILL BE PICKING HIM UP IN AM. PT ALERT AND ORIENTED. PT STATED "I ENJOYED THE VISIT, I WENT TO SLEEP IN THE CHAIR." PT ANXIOUS ABOUT GOING HOME IN THE A.M. ASSISTED PT TO CHANGE CLOTHES AND BACK IN BED.
[2021-04-24 20:00] VITALS: BP 108/60; TEMP 97.7
--- NOTE | 2021-04-25 02:27 | NUR ---
Pt resting in bed with eyes closed. PRN pain med given earlier this shift for generalized pain with relief noted. No further c/o pain/discomfort voiced. No s/s of distress. Call light in easy reach.
[2021-04-25 08:02] VITALS: BP 105/55; TEMP 97.4
--- NOTE | 2021-04-25 10:25 | NUR ---
daughter Jannet Bazzi [phone] Iyer pt is discharging today, she will pickup equipment at [facility], she asked that we just call her when pt is ready to discharge.
--- NOTE | 2021-04-25 14:10 | NUR ---
PATIENT DISCHARGED TO HOME VIA WHEELCHAIR WITH DAUGHTER DRIVING PERSONAL VEHICLE.
== END 2021-04-25 18:08 | disposition home health service (06) | DRG 872 ==
LOC: MED/SURG 11:12
PROVIDERS: ADMIT Internal Medicine Endocrinology, Diabetes & Metabolism; ATTEND Internal Medicine Endocrinology, Diabetes & Metabolism
DX: A41.9 Sepsis, unspecified organism (principal); I95.9 Hypotension, unspecified; I25.10 Atherosclerotic heart disease of native coronary artery without angina pectoris; K92.2 Gastrointestinal hemorrhage, unspecified; D50.9 Iron deficiency anemia, unspecified; R53.81 Other malaise; Z91.81 History of falling; M62.81 Muscle weakness (generalized); R26.2 Difficulty in walking, not elsewhere classified; Z74.1 Need for assistance with personal care; J30.9 Allergic rhinitis, unspecified; F41.9 Anxiety disorder, unspecified; K22.70 Barrett's esophagus without dysplasia; N40.0 Benign prostatic hyperplasia without lower urinary tract symptoms; K44.9 Diaphragmatic hernia without obstruction or gangrene; M54.9 Dorsalgia, unspecified; K21.9 Gastro-esophageal reflux disease without esophagitis; E03.9 Hypothyroidism, unspecified; I25.2 Old myocardial infarction; K59.09 Other constipation; Z95.1 Presence of aortocoronary bypass graft
CPT/HCPCS: 36415; 82272; 85027; 87081; 94760

== ENCOUNTER 2021-04-28 14:33 | Emergency (ER) | payer OTHER ==
[~2021-04-28] VITALS: Ht 175.3 cm; Wt 113.9 kg
[2021-04-28 14:37] VITALS: TEMP 97.4
[2021-04-28 15:24] LABS: PLATELET COUNT 200 K/uL (142-355)
[2021-04-28 15:29] LABS: POTASSIUM 3.8 mmol/L (3.6-5.2)
[2021-04-28 17:18] VITALS: BP 121/50
== END 2021-04-28 17:18 | disposition home or self-care (01) ==
LOC: ED 14:33
PROVIDERS: Emergency Medicine
DX: R53.1 Weakness (principal); R53.81 Other malaise; L53.8 Other specified erythematous conditions
CPT/HCPCS: 80048; 85027; 93005; 99283

== ENCOUNTER 2021-05-07 20:19 | Emergency (ER) | payer OTHER ==
[~2021-05-07] VITALS: Ht 175.3 cm; Wt 113.9 kg
[2021-05-08 00:07] VITALS: BP 131/72; TEMP 97.8
== END 2021-05-08 00:07 | disposition home or self-care (01) ==
LOC: ED 20:19
DX: K21.9 Gastro-esophageal reflux disease without esophagitis (principal); K92.2 Gastrointestinal hemorrhage, unspecified
CPT/HCPCS: 82271; 83986; 96374; 99284; J3490

== ENCOUNTER 2021-07-06 20:10 | Emergency (ER) | payer OTHER ==
[~2021-07-06] VITALS: Ht 33 cm; Wt 0.5 kg
[2021-07-06 20:51] LABS: POTASSIUM 4.1 mmol/L (3.6-5.2)
[2021-07-06 20:52] LABS: PLATELET COUNT 254 K/uL (142-355)
[2021-07-06 21:03] LABS: PARTIAL THROMBOPLASTIN TIME 26.1 SECONDS (24.5-33.6)
[2021-07-06 23:00] VITALS: BP 110/66; TEMP 97
== END 2021-07-06 23:10 | disposition short-term general hospital (02) ==
LOC: ED 20:10
PROVIDERS: Hospitalist
DX: K92.2 Gastrointestinal hemorrhage, unspecified (principal); K92.0 Hematemesis; K92.1 Melena; T45.515A Adverse effect of anticoagulants, initial encounter; Y92.89 Other specified places as the place of occurrence of the external cause; Z11.52 Encounter for screening for COVID-19
CPT/HCPCS: 36415; 80053; 82272; 83690; 85027; 85610; 85730; 86850; 86900; 86901; 87635; 93005; 96360; 96361; 96375; 99285; J2405; J3490; U0003

== ENCOUNTER 2021-08-13 09:46 | Outpatient (CLI) | payer OTHER ==
[2021-08-13 10:39] LABS: PLATELET COUNT 157 K/uL (142-355)
== END 2021-08-13 20:36 | disposition home or self-care (01) ==
LOC: LAB 09:46
PROVIDERS: ATTEND Internal Medicine
DX: R53.83 Other fatigue (principal)
CPT/HCPCS: 85027

== ENCOUNTER 2021-12-23 17:54 | Emergency (ER) | payer OTHER ==
[~2021-12-23] VITALS: Ht 167.6 cm; Wt 79.4 kg
[2021-12-23 18:46] LABS: PLATELET COUNT 208 K/uL (142-355)
[2021-12-23 18:48] LABS: POTASSIUM 3.8 mmol/L (3.6-5.2)
[2021-12-24 00:52] LABS: PLATELET COUNT 164 K/uL (142-355)
[2021-12-24 01:16] VITALS: BP 124/58; TEMP 97.6
== END 2021-12-24 01:16 | disposition short-term general hospital (02) ==
LOC: ED 17:54
PROVIDERS: Emergency Medicine
DX: R41.82 Altered mental status, unspecified (principal); E86.0 Dehydration; K92.2 Gastrointestinal hemorrhage, unspecified; Z11.52 Encounter for screening for COVID-19
CPT/HCPCS: 36415; 43754; 80053; 81000; 82271; 83986; 84484; 85027; 85610; 87635; 93005; 96360; 96361; 96365; 96375; 99285; J2405; J3490; U0003